=== PATIENT | female | born 2000 | race Two or more races ===

== ENCOUNTER 2022-06-30 15:22 | Emergency (ER) | payer OTHER ==
[~2022-06-30] VITALS: Ht 157.5 cm; Wt 58.1 kg
== END 2022-07-01 00:02 | disposition home or self-care (01) ==
LOC: ER 15:22
DX: O20.9 Hemorrhage in early pregnancy, unspecified (principal); Z3A.08 8 weeks gestation of pregnancy

== ENCOUNTER 2022-07-16 04:14 | Emergency (ER) | payer OTHER ==
[~2022-07-16] VITALS: Ht 157.5 cm; Wt 58.5 kg
== END 2022-07-16 10:14 | disposition home or self-care (01) ==
LOC: ER 04:14
DX: O26.891 Other specified pregnancy related conditions, first trimester (principal); Z3A.08 8 weeks gestation of pregnancy; R10.31 Right lower quadrant pain

== ENCOUNTER 2022-07-21 11:25 | Outpatient (CLI) | payer OTHER | END 2022-07-21 14:25 | disposition home or self-care (01) | LOC: PRENATAL 11:25 | PROVIDERS: ATTEND Obstetrics & Gynecology Maternal & Fetal Medicine | DX: O36.80X0 Pregnancy with inconclusive fetal viability, not applicable or unspecified (principal); Z36 Encounter for antenatal screening of mother; Z3A.11 11 weeks gestation of pregnancy ==

== ENCOUNTER 2022-09-11 17:56 | Emergency (ER) | payer OTHER ==
[~2022-09-11] VITALS: Ht 157.5 cm; Wt 64.0 kg
[2022-09-11] MEDS ORDERED: FOLIC ACID20 MG PO (18:34)
[2022-09-11] MEDS ORDERED: PRENATAL + DHA1 EAC1 PO (18:34)
== END 2022-09-11 22:02 | disposition home or self-care (01) ==
LOC: ER 17:56 → EMR PED 18:03 → ER 22:02
DX: O26.892 Other specified pregnancy related conditions, second trimester (principal); Z3A.18 18 weeks gestation of pregnancy; V43.52XA Car driver injured in collision with other type car in traffic accident, initial encounter; Y92.413 State road as the place of occurrence of the external cause

== ENCOUNTER 2022-09-17 13:05 | Outpatient (CLI) | payer OTHER ==
[~2022-09-17 13:05] MED LIST: FOLIC ACID20 MG PO; PRENATAL + DHA1 EAC1 PO
== END 2022-09-17 14:45 | disposition home or self-care (01) ==
LOC: PRENATAL 13:05
PROVIDERS: ATTEND Obstetrics & Gynecology Maternal & Fetal Medicine
DX: O35.9XX0 Maternal care for (suspected) fetal abnormality and damage, unspecified, not applicable or unspecified (principal); O35.3XX0 Maternal care for (suspected) damage to fetus from viral disease in mother, not applicable or unspecified; Z3A.20 20 weeks gestation of pregnancy

== ENCOUNTER 2022-12-10 13:35 | Outpatient (CLI) | payer OTHER | END 2022-12-10 14:11 | disposition home or self-care (01) | LOC: PRENATAL 13:35 | PROVIDERS: ATTEND Obstetrics & Gynecology Maternal & Fetal Medicine | DX: O26.849 Uterine size-date discrepancy, unspecified trimester (principal); O36.8199 Decreased fetal movements, unspecified trimester, other fetus; Z3A.32 32 weeks gestation of pregnancy ==

== ENCOUNTER 2023-01-12 15:57 | Inpatient (IN) | payer OTHER ==
[~2023-01-12] VITALS: Ht 157.5 cm; Wt 83.0 kg
== END 2023-01-25 08:03 | disposition home or self-care (01) | DRG 832 ==
LOC: OB/GYN → LDR 01-23 14:23 → OB/GYN 01-24 09:21 → LDR 01-25 07:54 → OB/GYN 02-04 15:56
PROVIDERS: Specialist; ADMIT Obstetrics & Gynecology; ATTEND Obstetrics & Gynecology
PROC: 4A1HXCZ Monitoring of Products of Conception, Cardiac Rate, External Approach (ICD-10-PCS; principal; 2023-01-23)
DX: O23.43 Unspecified infection of urinary tract in pregnancy, third trimester (principal); N39.0 Urinary tract infection, site not specified; Z3A.38 38 weeks gestation of pregnancy; Z20.822 Contact with and (suspected) exposure to COVID-19